=== PATIENT | female | born 1960 | race Caucasian/White ===

== ENCOUNTER 2020-11-30 14:23 | Emergency (ER) | payer BC ==
[~2020-11-30] VITALS: Ht 160 cm; Wt 78.0 kg
[2020-11-30] MEDS ORDERED: ULTRAM50 MG PO (15:50)
== END 2020-11-30 16:04 | disposition home or self-care (01) ==
LOC: ED 14:23
DX: S52.91XA Unspecified fracture of right forearm, initial encounter for closed fracture (principal); Z88.0 Allergy status to penicillin; Z88.5 Allergy status to narcotic agent; S52.201A Unspecified fracture of shaft of right ulna, initial encounter for closed fracture; X58.XXXA Exposure to other specified factors, initial encounter; Y93.89 Activity, other specified; Y92.89 Other specified places as the place of occurrence of the external cause; Y99.8 Other external cause status